=== PATIENT | female | born 1955 | race Caucasian/White ===

== ENCOUNTER 2018-02-13 10:38 | Emergency (ER) | payer SELFPAY | END 2018-02-13 11:07 | disposition home or self-care (01) | LOC: NAV ERS 10:38 | DX: K02.9 Dental caries, unspecified (principal); I10 Essential (primary) hypertension; J45.909 Unspecified asthma, uncomplicated; Z79.899 Other long term (current) drug therapy | CPT/HCPCS: 99283 ==

== ENCOUNTER 2020-11-27 12:18 | Emergency (ER) | payer OTHER, SELFPAY | END 2020-11-27 13:20 | disposition home or self-care (01) | LOC: NAV ERS 12:18 | DX: M25.511 Pain in right shoulder (principal); I10 Essential (primary) hypertension; J45.909 Unspecified asthma, uncomplicated; Z79.51 Long term (current) use of inhaled steroids; Z79.899 Other long term (current) drug therapy; W01.10XA Fall on same level from slipping, tripping and stumbling with subsequent striking against unspecified object, initial encounter ==

== ENCOUNTER 2023-03-14 11:37 | Outpatient (CLI) | payer MEDICARE, OTHER | END 2023-03-14 11:38 | disposition home or self-care (01) | LOC: NAV RAD 11:37 | PROVIDERS: ATTEND Nurse Practitioner Family | DX: M54.50 Low back pain, unspecified (principal); M47.816 Spondylosis without myelopathy or radiculopathy, lumbar region | CPT/HCPCS: 72100 ==

== ENCOUNTER 2023-10-01 12:48 | Outpatient (CLI) | payer MEDICARE, OTHER | END 2023-10-01 12:49 | disposition home or self-care (01) | LOC: NAV RAD 12:48 | PROVIDERS: ATTEND Nurse Practitioner Family | DX: M17.11 Unilateral primary osteoarthritis, right knee (principal); M25.461 Effusion, right knee; M76.9 Unspecified enthesopathy, lower limb, excluding foot ==